=== PATIENT | male | born 1955 | race Caucasian/White ===

== ENCOUNTER 2019-09-23 11:17 | Emergency (ER) | payer MEDICARE ==
--- NOTE | 2019-09-23 12:43 | EDM.PDOC ---
ED HPI GENERAL MEDICAL PROBLEM - General Chief Complaint: General Stated Complaint: MED REFILL Time Seen by Provider: 09/23/19 11:30 Source of Information: Reports: Patient History Limitations: Reports: No Limitations - History of Present Illness INITIAL COMMENTS - FREE TEXT/NARRATIVE: 64-year-old male presents for mycotic medication refill. He recently moved here from [place] on July 01. He has had chronic low back pain for years and was prescribed OxyContin 40 mg twice daily, [place] 10/325 4 times a day, he ran out 4 days ago. He has an appointment to see pain management at [facility] on 09/29. He denies fever, chills, chest pain, abdominal pain, changes to his back pain, fecal or urinary incontinence, lower extremity weakness or numbness. He claims the clinic sent him here for medication refill. ROS: A 10-point review of systems, other than pertinent positives and negatives as stated per HPI, is otherwise negative Past medical history: No additional pertinent history Past Surgical history: No additional pertinent history Social history: No additional pertinent history Family history: No additional pertinent history PHYSICAL EXAM General: AOx4, GCS = 15, No distress HEENT: dry mucous membrane Neck: supple, no meningismus, no Kernig or Brudzinski Cardiac: S1S2 RRR Respiratory: CTAB, no crackles or rales, no wheezing Abdomen: Soft, nontender, no rebound or guarding, nondistended, no pulsatile mass. Back: nontender Musculoskeletal: NVI distally, no deformity Neuro: No focal deficits, CN 2 - 12 WNL. lower back Pain Score (Numeric/FACES): 9 - Related Data Allergies Allergy/AdvReac Type Severity Reaction Status Date / Time No Known Allergies Allergy Verified 09/23/19 11:28 Home Meds: Home Meds Hydrocodone/Acetaminophen [Hydrocodone-Acetamin 10-325 mg] 1 tab PO QID 09/23/19 [History] oxyCODONE ER [OxyCONTIN] 40 mg PO BID 09/23/19 [History] Past Medical History - Past Health History Medical/Surgical History: Denies Medical/Surgical History Musculoskeletal History: Reports: Back Pain, Chronic Social & Family History - Family History Family Medical History: Noncontributory - Tobacco Use Smoking Status *Q: Never Smoker - Caffeine Use Caffeine Use: Reports: Tea - Recreational Drug Use Recreational Drug Use: No ED ROS GENERAL - Review of Systems Review Of Systems: Comprehensive ROS is negative, except as noted in HPI. ED EXAM, GENERAL - Physical Exam Exam: See Below Course - Vital Signs Last Recorded V/S: Last Vital Signs Temp 98.2 F 09/23/19 11:25 Pulse 86 09/23/19 11:25 Resp 16 09/23/19 11:25 BP 174/87 H 09/23/19 11:25 Pulse Ox 95 09/23/19 11:25 - Orders/Labs/Meds Orders: Active Orders 24 hr Category Date Time Status Ketorolac [Toradol] Med 09/23/19 13:02 Once 30 mg IM ONETIME ONE Medication Orders Ketorolac Tromethamine (Toradol) 30 mg IM ONETIME ONE Stop: 09/23/19 13:03 Meds: Medications Generic Name Dose Route Start Last Admin Trade Name Freq PRN Reason Stop Dose Admin Ketorolac Tromethamine 30 mg 09/23/19 13:02 Toradol IM 09/23/19 13:03 ONETIME ONE - Re-Assessments/Exams Free Text/Narrative Re-Assessment/Exam: 09/23/19 13:04 After IM toradol. he is stable for discharge. I performed a repeat examination and the patient has not demonstrated any new abnormal findings. Patient exhibits normal vital signs and has exhibited a normal gait. I advised the patient to return to the ER for reevaluation if symptoms worsened, and to follow up with their pain management doctor for medication refill. MEDICAL DECISION MAKING: I reviewed the patients past medical records, lab and radiographic findings. I discussed the case with the patient. My differential diagnosis included: Medication refill, opiate dependence, drug-seeking behavior. Patient's back pain is suggestive of musculoskeletal strain. There are no complaints of urinary or fecal incontinence, focal numbness or weakness. The patient has a normal gait in the ER. There is no evidence of fever, IV drug use, recent back surgery, or immunocompromised state. I do not suspect caude equine syndrome or cord compression which would warrant further imaging. I instructed him to follow-up with his pain management doctor for narcotic refills. Instructed him that the emergency department is not the appropriate setting for refills of narcotic medication. I elected to give him an IM injection for his acute pain, and have him follow-up with pain management for narcotic refills. Departure - Departure Time of Disposition: 13:10 Disposition: Home, Self-Care 01 Condition: Good Clinical Impression: Back pain - Discharge Information *PRESCRIPTION DRUG MONITORING PROGRAM REVIEWED*: Not Applicable *COPY OF PRESCRIPTION DRUG MONITORING REPORT IN PATIENT JAN: Not Applicable Instructions: What You Need to Know About Chronic Back Pain, Back Injury Prevention Referrals: PCP,Not In Area [Primary Care Provider] - Forms: ED Department Discharge Additional Instructions: The following information is given to patients seen in the emergency department who are being discharged to home. This information is to outline your options for follow-up care. We provide all patients seen in our emergency department with a follow-up referral. The need for follow-up, as well as the timing and circumstances, are variable depending upon the specifics of your emergency department visit. If you don't have a primary care physician on staff, we will provide you with a referral. We always advise you to contact your personal physician following an emergency department visit to inform them of the circumstance of the visit and for follow-up with them and/or the need for any referrals to a consulting specialist. The emergency department will also refer you to a specialist when appropriate. This referral assures that you have the opportunity for follow-up care with a specialist. All of these measure are taken in an effort to provide you with optimal care, which includes your follow-up. Under all circumstances we always encourage you to contact your private physician who remains a resource for coordinating your care. When calling for follow-up care, please make the office aware that this follow-up is from your recent emergency room visit. If for any reason you are refused follow-up, please contact the [facility] Emergency Department at and asked to speak to the emergency department charge nurse. If you do not have a primary care doctor, please follow up with the clinics below within 3-5 days. [facility] - Primary Care [address] [place] [id number] [facility] [address] [place] [id number] Sepsis Event Note (ED) - Evaluation Sepsis Screening Result: No Definite Risk - Focused Exam Vital Signs: Vital Signs Temp Pulse Resp BP Pulse Ox 09/23/19 11:25 98.2 F 86 16 174/87 H 95 - My Orders Last 24 Hours: My Active Orders 09/23/19 13:02 Ketorolac [Toradol] 30 mg IM ONETIME ONE - Assessment/Plan Last 24 Hours: My Active Orders 09/23/19 13:02 Ketorolac [Toradol] 30 mg IM ONETIME ONE
[2019-09-23] MEDS ORDERED: Ketorolac 30 MG/ML SDV IM ONE (13:02)
== END 2019-09-23 13:24 | disposition home or self-care (01) ==
LOC: MW.ED 11:17
DX: M54.5 Low back pain (principal); G89.29 Other chronic pain; Z76.0 Encounter for issue of repeat prescription; Z79.899 Other long term (current) drug therapy
CPT/HCPCS: 96372; 99281; J1885

== ENCOUNTER 2020-11-24 22:27 | Inpatient (IN) | payer MEDICARE ==
[2020-11-24] MEDS ORDERED: methylPREDNISolone Sodium Succinate 125 MG/2 ML SDV IVPUSH ONE (22:42)
[2020-11-24] MEDS ORDERED: Albuterol/Ipratropium 3.0-0.5 MG/3 ML Neb Soln NEB ONE (22:43)
--- NOTE | 2020-11-24 22:46 | EDM.PDOC ---
ED HPI GENERAL MEDICAL PROBLEM - General Chief Complaint: Respiratory Problem Stated Complaint: SOB Time Seen by Provider: 11/24/20 22:28 Source of Information: Reports: Patient History Limitations: Reports: No Limitations - History of Present Illness INITIAL COMMENTS - FREE TEXT/NARRATIVE: Patient is a 65-year-old male with no past medical history for patient but does vape presents today for not feeling well. When asked patient said he does not feel himself he feels down and not energized. He has vomited the bedside states been coughing as well with a yellow production. States he felt warm and not had any documented temperatures. Denies any abdominal pain any nausea vomiting but days he has decreased p.o. intake as he has no appetite. Denies any urinary symptoms. Patient denies any other complaints. head Pain Score (Numeric/FACES): 8 - Related Data Allergies Allergy/AdvReac Type Severity Reaction Status Date / Time No Known Allergies Allergy Verified 11/24/20 22:42 Home Meds: Home Meds Hydrocodone/Acetaminophen [Hydrocodone-Acetamin 10-325 mg] 1 tab PO QID 09/23/19 [History] oxyCODONE ER [OxyCONTIN] 40 mg PO BID 09/23/19 [History] Past Medical History - Past Health History Medical/Surgical History: Denies Medical/Surgical History Musculoskeletal History: Reports: Back Pain, Chronic Social & Family History - Family History Family Medical History: No Pertinent Family History - Tobacco Use Tobacco Use Status *Q: Current Some Day Tobacco User Years of Tobacco use: 20 Packs/Tins Daily: 1 - Caffeine Use Caffeine Use: Reports: Tea - Recreational Drug Use Recreational Drug Use: No ED ROS GENERAL - Review of Systems Review Of Systems: See Below Constitutional: Reports: Malaise HEENT: Reports: No Symptoms Respiratory: Reports: Shortness of Breath Cardiovascular: Reports: No Symptoms Endocrine: Reports: No Symptoms GI/Abdominal: Reports: No Symptoms : Reports: No Symptoms Musculoskeletal: Reports: No Symptoms Skin: Reports: No Symptoms Neurological: Reports: No Symptoms Psychiatric: Reports: No Symptoms Hematologic/Lymphatic: Reports: No Symptoms Immunologic: Reports: No Symptoms ED EXAM, GENERAL - Physical Exam Exam: See Below Exam Limited By: No Limitations General Appearance: Alert, WD/WN, No Apparent Distress Head: Atraumatic, Normocephalic Neck: Normal Inspection Respiratory/Chest: No Respiratory Distress, Rhonchi, Wheezing Cardiovascular: Normal Peripheral Pulses, Regular Rate, Rhythm, No Edema GI/Abdominal: Normal Bowel Sounds, Soft, Non-Tender Back Exam: Normal Inspection Extremities: Normal Inspection, Normal Range of Motion, Non-Tender Neurological: Alert, Oriented, CN II-XII Intact, Normal Cognition, Normal Gait Course - Vital Signs Last Recorded V/S: Last Vital Signs Temp 97.1 F 11/24/20 22:40 Pulse 86 11/24/20 23:17 Resp 18 11/24/20 23:17 BP 113/73 11/24/20 23:17 Pulse Ox 93 L 11/24/20 23:17 - Orders/Labs/Meds Orders: Active Orders 24 hr Category Date Time Status Patient Status [ADT] Routine ADT 11/24/20 23:48 Ordered EKG Documentation Completion [RC] STAT Care 11/24/20 22:42 Active RT Aerosol Therapy [RC] ASDIRECTED Care 11/24/20 22:43 Active BILIRUBIN DIRECT [CHEM] DAILY Lab 11/24/20 23:48 Ordered BILIRUBIN DIRECT [CHEM] DAILY Lab 11/25/20 23:48 Ordered BILIRUBIN DIRECT [CHEM] DAILY Lab 11/26/20 23:48 Ordered BILIRUBIN DIRECT [CHEM] DAILY Lab 11/27/20 23:48 Ordered BILIRUBIN DIRECT [CHEM] DAILY Lab 11/28/20 23:48 Ordered BILIRUBIN DIRECT [CHEM] DAILY Lab 11/29/20 23:48 Ordered BILIRUBIN DIRECT [CHEM] Stat Lab 11/24/20 23:48 Ordered COMPREHENSIVE METABOLIC PN,CMP [CHEM] DAILY Lab 11/24/20 23:48 Ordered COMPREHENSIVE METABOLIC PN,CMP [CHEM] DAILY Lab 11/25/20 23:48 Ordered COMPREHENSIVE METABOLIC PN,CMP [CHEM] DAILY Lab 11/26/20 23:48 Ordered COMPREHENSIVE METABOLIC PN,CMP [CHEM] DAILY Lab 11/27/20 23:48 Ordered COMPREHENSIVE METABOLIC PN,CMP [CHEM] DAILY Lab 11/28/20 23:48 Ordered COMPREHENSIVE METABOLIC PN,CMP [CHEM] DAILY Lab 11/29/20 23:48 Ordered COMPREHENSIVE METABOLIC PN,CMP [CHEM] Stat Lab 11/24/20 23:48 Ordered Azithromycin [Zithromax] 500 mg Med 11/24/20 23:45 Active Sodium Chloride 0.9% [Normal Saline (AdvBag)] 250 ml IV ONETIME Medication Orders Azithromycin 500 mg/ Sodium (Chloride) 250 mls @ 250 mls/hr IV ONETIME [facility] Labs: Laboratory Tests 11/24/20 11/24/20 11/24/20 Range/Units 22:40 22:46 22:46 WBC 7.74 (4.0-11.0) K/uL RBC 4.67 (4.50-5.90) M/uL Hgb 13.9 (13.0-17.0) g/dL Hct 40.9 (38.0-50.0) % MCV 87.6 (80.0-98.0) fL MCH 29.8 (27.0-32.0) pg MCHC 34.0 (31.0-37.0) g/dL RDW Std Deviation 45.2 (28.0-62.0) fl RDW Coeff of Diogo 14 (11.0-15.0) % Plt Count 159 (150-400) K/uL MPV 10.40 (7.40-12.00) fL Neut % (Auto) 75.3 (48.0-80.0) % Lymph % (Auto) 14.2 L (16.0-40.0) % Sharp % (Auto) 10.3 (0.0-15.0) % Eos % (Auto) 0.1 (0.0-7.0) % Baso % (Auto) 0.1 (0.0-1.5) % Neut # (Auto) 5.8 H (1.4-5.7) K/uL Lymph # (Auto) 1.1 (0.6-2.4) K/uL Sharp # (Auto) 0.8 (0.0-0.8) K/uL Eos # (Auto) 0.0 (0.0-0.7) K/uL Baso # (Auto) 0.0 (0.0-0.1) K/uL Nucleated RBC % 0.0 /100WBC Nucleated RBCs # 0 K/uL Sodium 135 L (136-148) mmol/L Potassium 3.8 (3.5-5.1) mmol/L Chloride 99 (98-107) mmol/L Carbon Dioxide 26.1 (21.0-32.0) mmol/L BUN 14 (7.0-18.0) mg/dL Creatinine 1.0 (0.8-1.3) mg/dL Est Cr Clr Drug Dosing 90.37 mL/min Estimated GFR (MDRD) > 60.0 ml/min Glucose 131 H (74-106) mg/dL Calcium 8.5 (8.5-10.1) mg/dL Magnesium 1.8 (1.8-2.4) mg/dL Total Bilirubin 1.0 (0.2-1.0) mg/dL AST 55 H (15-37) IU/L ALT 54 (14-63) IU/L Alkaline Phosphatase 26 L (46-116) U/L Creatine Kinase 169 (26-308) U/L Troponin I < 0.050 (0.000-0.056) ng/mL Total Protein 7.9 (6.4-8.2) g/dL Albumin 3.0 L (3.4-5.0) g/dL Globulin 4.9 H (2.6-4.0) g/dL Albumin/Globulin Ratio 0.6 L (0.9-1.6) Lipase 57 L (73-393) U/L SARS-CoV-2 RNA (BETH) POSITIVE H (NEGATIVE) Meds: Medications Generic Name Dose Route Start Last Admin Trade Name Freq PRN Reason Stop Dose Admin Azithromycin 500 mg/ Sodium 250 mls @ 250 mls/hr 11/24/20 23:45 Chloride IV ONETIME LAURA Discontinued Medications Generic Name Dose Route Start Last Admin Trade Name Freq PRN Reason Stop Dose Admin Albuterol/Ipratropium 3 ml 11/24/20 22:43 11/24/20 22:54 Albuterol/Ipratropium 3.0-0.5 Mg/3 Ml Neb Soln NEB 11/24/20 22:44 3 ml ONETIME ONE Administration Ceftriaxone Sodium 1 gm 11/24/20 23:44 Ceftriaxone 1 Gm Vial IVPUSH 11/24/20 23:45 ONETIME ONE Remdesivir 200 mg/ Sodium 250 mls @ 250 mls/hr 11/24/20 23:48 Chloride IV 11/24/20 23:49 ONETIME ONE Methylprednisolone Sodium Succinate 125 mg 11/24/20 22:42 11/24/20 22:51 Methylprednisolone Sodium Succinate 125 Mg/2 Ml Sdv IVPUSH 11/24/20 22:43 125 mg ONETIME ONE Administration - Re-Assessments/Exams Free Text/Narrative Re-Assessment/Exam: 11/24/20 23:50 Shocks improved with 3 L up to 93%. Patient x-ray showed possible pneumonia but he is also Covid positive. We will start patient on ceftriaxone azithromycin give steroids and remdesivir and admit to hospital Departure - Departure Time of Disposition: 23:49 Disposition: Admitted As Inpatient 68 Condition: Good Clinical Impression: Pneumonia, Hypoxia - Discharge Information Referrals: Cayden Lr MD [Primary Care Provider] - Forms: ED Department Discharge Critical Care Note - Critical Care Note Total Time (mins): 45 Comments: Critical Care Procedure Note Authorized and Performed by: Dr. Romo Total critical care time: Approximately Due to a high probability of clinically significant, life threatening deterioration, the patient required my highest level of preparedness to intervene emergently and I personally spent this critical care time directly and personally managing the patient. This critical care time included obtaining a history; examining the patient; pulse oximetry; ordering and review of studies; arranging urgent treatment with development of a management plan; evaluation of patient's response to treatment; frequent reassessment; and, discussions with other providers. This critical care time was performed to assess and manage the high probability of imminent, life-threatening deterioration that could result in multi-organ failure. It was exclusive of separately billable procedures and treating other patients and teaching time. Sepsis Event Note (ED) - Evaluation Sepsis Screening Result: No Definite Risk - Focused Exam Vital Signs: Vital Signs Temp Pulse Resp BP Pulse Ox 11/24/20 23:17 86 18 113/73 93 L 11/24/20 22:40 97.1 F 97 20 152/76 H 89 L - My Orders Last 24 Hours: My Active Orders 11/24/20 22:42 EKG Documentation Completion [RC] STAT 11/24/20 22:43 RT Aerosol Therapy [RC] ASDIRECTED 11/24/20 23:45 Azithromycin [Zithromax] 500 mg Sodium Chloride 0.9% [Normal Saline (AdvBag)] 250 ml IV ONETIME 11/24/20 23:48 Patient Status [ADT] Routine BILIRUBIN DIRECT [CHEM] DAILY BILIRUBIN DIRECT [CHEM] Stat COMPREHENSIVE METABOLIC PN,CMP [CHEM] DAILY COMPREHENSIVE METABOLIC PN,CMP [CHEM] Stat 11/25/20 23:48 BILIRUBIN DIRECT [CHEM] DAILY COMPREHENSIVE METABOLIC PN,CMP [CHEM] DAILY 11/26/20 23:48 BILIRUBIN DIRECT [CHEM] DAILY COMPREHENSIVE METABOLIC PN,CMP [CHEM] DAILY 11/27/20 23:48 BILIRUBIN DIRECT [CHEM] DAILY COMPREHENSIVE METABOLIC PN,CMP [CHEM] DAILY 11/28/20 23:48 BILIRUBIN DIRECT [CHEM] DAILY COMPREHENSIVE METABOLIC PN,CMP [CHEM] DAILY 11/29/20 23:48 BILIRUBIN DIRECT [CHEM] DAILY COMPREHENSIVE METABOLIC PN,CMP [CHEM] DAILY - Assessment/Plan Last 24 Hours: My Active Orders 11/24/20 22:42 EKG Documentation Completion [RC] STAT 11/24/20 22:43 RT Aerosol Therapy [RC] ASDIRECTED 11/24/20 23:45 Azithromycin [Zithromax] 500 mg Sodium Chloride 0.9% [Normal Saline (AdvBag)] 250 ml IV ONETIME 11/24/20 23:48 Patient Status [ADT] Routine BILIRUBIN DIRECT [CHEM] DAILY BILIRUBIN DIRECT [CHEM] Stat COMPREHENSIVE METABOLIC PN,CMP [CHEM] DAILY COMPREHENSIVE METABOLIC PN,CMP [CHEM] Stat 11/25/20 23:48 BILIRUBIN DIRECT [CHEM] DAILY COMPREHENSIVE METABOLIC PN,CMP [CHEM] DAILY 11/26/20 23:48 BILIRUBIN DIRECT [CHEM] DAILY COMPREHENSIVE METABOLIC PN,CMP [CHEM] DAILY 11/27/20 23:48 BILIRUBIN DIRECT [CHEM] DAILY COMPREHENSIVE METABOLIC PN,CMP [CHEM] DAILY 11/28/20 23:48 BILIRUBIN DIRECT [CHEM] DAILY COMPREHENSIVE METABOLIC PN,CMP [CHEM] DAILY 11/29/20 23:48 BILIRUBIN DIRECT [CHEM] DAILY COMPREHENSIVE METABOLIC PN,CMP [CHEM] DAILY Plan: Patient six 5-year-old male presents today for malaise. Patient states he does not feel well not himself. Reports coughing. He is satting 88% on room air. Patient placed on nasal cannula begin steroids albuterol labs x-ray and reassess.
[2020-11-24 23:17] LABS: BLOOD UREA NITROGEN,BUN 14 mg/dL (7.0-18.0); CARBON DIOXIDE,CO2 26.1 mmol/L (21.0-32.0); CHLORIDE,CL 99 mmol/L (98-107); GLUCOSE RANDOM 131 mg/dL (74-106); LIPASE 57 U/L (73-393); POTASSIUM,K 3.8 mmol/L (3.5-5.1); SODIUM,NA 135 mmol/L (136-148)
--- NOTE | 2020-11-24 23:29 | CR ---
INDICATION: Cough and hypoxia TECHNIQUE: Chest radiograph 1 view COMPARISON: None FINDINGS: The sensitivity and specificity of the exam are severely limited by the patient`s body habitus. Mediastinum: The mediastinum is normal in appearance. The heart silhouette is normal in size and morphology. Lung: Ground-glass and fine nodular infiltrates are present in the right midlung zone, likely due to pneumonia or aspiration. No sign of pleural effusion seen. No pneumothorax is identified. Bone and Soft tissue: Unremarkable for age. IMPRESSION: 1. Ground-glass and fine nodular infiltrates are present in the right midlung zone, likely due to pneumonia or aspiration. Dictated by Jian Jose MD @ 11/24/2020 11:28:36 PM Dictated by: Jian Jose MD @ 11/24/2020 23:28:39 (Electronically Signed)
[2020-11-24] MEDS ORDERED: cefTRIAXone 1 GM Vial IVPUSH ONE (23:44)
[2020-11-24] MEDS ORDERED: Azithromycin 500 MG in Sodium Chloride 0.9% 250 ML IV SCH ×4 (23:45)
[2020-11-24] MEDS ORDERED: REMDESIVIR 200 MG in Sodium Chloride 0.9% 250 ML IV ONE (23:48)
[2020-11-24] MEDS ORDERED: Water For Injection, Sterile 20 ML SDV INJECT STA (23:56)
[2020-11-24] MEDS ORDERED: Azithromycin 500 MG in Sodium Chloride 0.9% 250 ML IV STA (23:57)
[2020-11-25] MEDS ORDERED: Ondansetron 4 MG/2 ML SDV IVPUSH PRN (02:21)
[2020-11-25] MEDS ORDERED: Albuterol/Ipratropium 4 GM Inhalation Spray INH PRN (02:22)
[2020-11-25] MEDS: Acetaminophen/HYDROcodone 325-10 MG Tab PO SCH ×2 (05:04→11:51)
--- NOTE | 2020-11-25 07:40 | PCM.HP.2 ---
H&P History of Present Illness - General Date of Service: 11/25/20 Admit Problem/Dx: Admission Diagnosis/Problem Admission Diagnosis/Problem Hypoxia - History of Present Illness Initial Comments - Free Text/Narative: 65-year-old male with no stated past medical history except chronic back pain treated with OxyContin and hydrocodone PRN presented to the emergency department with a roughly 1 week history of fatigue, cough with sputum production. At admission patient denied fever, chills, nausea, vomiting, abdominal pain, diarrhea. Patient states decreased appetite due to feeling ill. Patient has a history of vaping. Patient admitted for COVID-19 pneumonia. ER coursepatient started on ceftriaxone 1 g, azithromycin 5 mg, methylprednisolone 125 mg IV. Laboratory White blood cell count 7.74, hemoglobin 13.9, platelet 159, sodium 135, potassium 3.8, BUN 14, creatinine 1.0, magnesium 1.8, AST 55, ALT 54. Chest x-ray impression groundglass and fine nodular infiltrates present in the right midlung zone, pneumonia or aspiration. Admit to [facility] for COVID-19 pneumonia head Pain Score (Numeric/FACES): 2 Lower Back Pain Score (Numeric/FACES): 7 - Related Data Allergies/Adverse Reactions: Allergies Allergy/AdvReac Type Severity Reaction Status Date / Time No Known Allergies Allergy Verified 11/25/20 02:16 Home Medications: Home Meds Hydrocodone/Acetaminophen [Hydrocodone-Acetamin 10-325 mg] 1 tab PO QID 09/23/19 [History] oxyCODONE ER [OxyCONTIN] 40 mg PO BID 09/23/19 [History] Past Medical History - Past Health History Medical/Surgical History: Denies Medical/Surgical History Musculoskeletal History: Reports: Back Pain, Chronic - Past Surgical History Other Musculoskeletal Surgeries/Procedures:: back surgery Social & Family History - Family History Family Medical History: No Pertinent Family History - Tobacco Use Tobacco Use Status *Q: Former Tobacco User Years of Tobacco use: 20 Packs/Tins Daily: 1 Used Tobacco, but Quit: Yes Month/Year Tobacco Last Used: 2017 - Caffeine Use Caffeine Use: Reports: Soda, Tea - Recreational Drug Use Recreational Drug Use: No H&P Review of Systems - Review of Systems: Review Of Systems: See Below General: Denies: Fever, Chills, Fatigue Pulmonary: Reports: Cough. Denies: Shortness of Breath, Wheezing Cardiovascular: Denies: Chest Pain, Palpitations, Orthopnea, Edema Gastrointestinal: Denies: Abdominal Pain, Diarrhea, Decreased Appetite, Nausea Musculoskeletal: Reports: Back Pain Psychiatric: Denies: Confusion Neurological: Denies: Confusion, Dizziness, Headache Exam - Exam Exam: See Below - Vital Signs Vital Signs: Last Vital Signs Temp 97.7 F 11/25/20 04:00 Pulse 70 11/25/20 04:00 Resp 16 11/25/20 04:00 BP 132/72 11/25/20 04:00 Pulse Ox 90 L 11/25/20 04:00 Weight: 225 lb - Exam Quality Assessment: Supplemental Oxygen General: Alert, Oriented Lungs: Clear to Auscultation, Normal Respiratory Effort Cardiovascular: Regular Rate, Regular Rhythm GI/Abdominal Exam: Normal Bowel Sounds, Soft, Non-Tender Extremities: No Pedal Edema Neuro Extensive - Mental Status: Alert, Oriented x3 Psychiatric: Alert - Patient Data Lab Results Last 24 hrs: Laboratory Results - last 24 hr 11/24/20 11/24/20 11/24/20 Range/Units 22:40 22:46 22:46 WBC 7.74 (4.0-11.0) K/uL RBC 4.67 (4.50-5.90) M/uL Hgb 13.9 (13.0-17.0) g/dL Hct 40.9 (38.0-50.0) % MCV 87.6 (80.0-98.0) fL MCH 29.8 (27.0-32.0) pg MCHC 34.0 (31.0-37.0) g/dL RDW Std Deviation 45.2 (28.0-62.0) fl RDW Coeff of Diogo 14 (11.0-15.0) % Plt Count 159 (150-400) K/uL MPV 10.40 (7.40-12.00) fL Neut % (Auto) 75.3 (48.0-80.0) % Lymph % (Auto) 14.2 L (16.0-40.0) % [place] % (Auto) 10.3 (0.0-15.0) % Eos % (Auto) 0.1 (0.0-7.0) % Baso % (Auto) 0.1 (0.0-1.5) % Neut # (Auto) 5.8 H (1.4-5.7) K/uL Lymph # (Auto) 1.1 (0.6-2.4) K/uL [place] # (Auto) 0.8 (0.0-0.8) K/uL Eos # (Auto) 0.0 (0.0-0.7) K/uL Baso # (Auto) 0.0 (0.0-0.1) K/uL Nucleated RBC % 0.0 /100WBC Nucleated RBCs # 0 K/uL Sodium 135 L (136-148) mmol/L Potassium 3.8 (3.5-5.1) mmol/L Chloride 99 (98-107) mmol/L Carbon Dioxide 26.1 (21.0-32.0) mmol/L BUN 14 (7.0-18.0) mg/dL Creatinine 1.0 (0.8-1.3) mg/dL Est Cr Clr Drug Dosing 90.37 mL/min Estimated GFR (MDRD) > 60.0 ml/min Glucose 131 H (74-106) mg/dL Calcium 8.5 (8.5-10.1) mg/dL Magnesium 1.8 (1.8-2.4) mg/dL Total Bilirubin 1.0 (0.2-1.0) mg/dL AST 55 H (15-37) IU/L ALT 54 (14-63) IU/L Alkaline Phosphatase 26 L (46-116) U/L Creatine Kinase 169 (26-308) U/L Troponin I < 0.050 (0.000-0.056) ng/mL Total Protein 7.9 (6.4-8.2) g/dL Albumin 3.0 L (3.4-5.0) g/dL Globulin 4.9 H (2.6-4.0) g/dL Albumin/Globulin Ratio 0.6 L (0.9-1.6) Lipase 57 L (73-393) U/L SARS-CoV-2 RNA (BETH) POSITIVE H (NEGATIVE) Result Diagrams: 11/24/20 22:46 11/24/20 22:46 Sepsis Event Note - Evaluation Sepsis Screening Result: No Definite Risk - Focused Exam Vital Signs: Vital Signs Temp Pulse Resp BP Pulse Ox 11/25/20 04:00 97.7 F 70 16 132/72 90 L 11/25/20 01:10 75 19 122/71 95 11/25/20 00:11 96.2 F L 78 18 129/71 91 L 11/24/20 23:17 86 18 113/73 93 L 11/24/20 22:40 97.1 F 97 20 152/76 H 89 L - Problem List (1) COVID-19 SNOMED Code(s): 129368505 ICD Code: U07.1 - COVID-19 Status: Acute Current Visit: Yes (2) Hypoxia SNOMED Code(s): 284893929 ICD Code: R09.02 - HYPOXEMIA Status: Acute Current Visit: Yes (3) Pneumonia SNOMED Code(s): 134331769 ICD Code: J18.9 - PNEUMONIA, UNSPECIFIED ORGANISM Status: Acute Current Visit: Yes (4) Back pain SNOMED Code(s): 453315785 ICD Code: M54.9 - DORSALGIA, UNSPECIFIED Status: Acute Current Visit: No Problem List Initiated/Reviewed/Updated: Yes Orders Last 24hrs: Active Orders 24 hr Category Date Time Status Patient Status [ADT] Routine ADT 11/25/20 00:17 Active RT Post Treatment Assessment [RC] Click to Edit Care 11/25/20 02:24 Active RT Pre-Treatment Assessment [RC] Click to Edit Care 11/25/20 02:24 Active Regular Diet [DIET] Diet 11/25/20 Breakfast Active BILIRUBIN DIRECT [CHEM] DAILY Lab 11/25/20 23:48 Ordered BILIRUBIN DIRECT [CHEM] DAILY Lab 11/26/20 23:48 Ordered BILIRUBIN DIRECT [CHEM] DAILY Lab 11/27/20 23:48 Ordered BILIRUBIN DIRECT [CHEM] DAILY Lab 11/28/20 23:48 Ordered BILIRUBIN DIRECT [CHEM] DAILY Lab 11/29/20 23:48 Ordered COMPREHENSIVE METABOLIC PN,CMP [CHEM] DAILY Lab 11/25/20 23:48 Ordered COMPREHENSIVE METABOLIC PN,CMP [CHEM] DAILY Lab 11/26/20 23:48 Ordered COMPREHENSIVE METABOLIC PN,CMP [CHEM] DAILY Lab 11/27/20 23:48 Ordered COMPREHENSIVE METABOLIC PN,CMP [CHEM] DAILY Lab 11/28/20 23:48 Ordered COMPREHENSIVE METABOLIC PN,CMP [CHEM] DAILY Lab 11/29/20 23:48 Ordered Acetaminophen/HYDROcodone [[place]lessing 325-10 MG] Med 11/25/20 06:00 Active 1 tab PO QID Albuterol/Ipratropium [Combivent Respimat] Med 11/25/20 02:22 Active 0 gm INH Q6H PRN Ondansetron [Zofran] Med 11/25/20 02:21 Active 4 mg IVPUSH Q4H PRN Medication Orders Hydrocodone Bitart/Acetaminophen (Acetaminophen/Hydrocodone 325-10 Mg Tab) 1 tab PO QID LAURA Last Admin: 11/25/20 05:04 Dose: 1 tab Documented by: FAZAL Albuterol/Ipratropium (Albuterol/Ipratropium 4 Gm Inhalation [place]) 0 gm INH Q6H PRN PRN Reason: Dyspnea Ondansetron HCl (Ondansetron 4 Mg/2 Ml Sdv) 4 mg IVPUSH Q4H PRN PRN Reason: Nausea/Vomiting Assessment/Plan Comment:: COVID-19 pneumonia 100 mg every 24 hour X 4 days Dexamethasone 6 mg daily Combivent every 4 hours as needed, 40 mg Protonix every 24 hours, Lovenox 40mg SQ daily Chronic back painOxyContin 40 mg twice daily, hydrocodone as needed for breakthrough pain. Patient states he has been taking this regimen for a few years. Per [place] PDMP patient is currently being followed by Dr. Lr at [facility] and has received scheduled prescriptions of OxyContin ER 40 mg and [place]ing 10mg via [facility]. Prior to this patient was receiving morphine via morphine pump. Chest x-ray suspicious for pneumonia versus aspiration, will resume azithromycin 500 mg every 24, ceftriaxone 1 g every 24
[2020-11-25] MEDS: Pantoprazole 40 MG in Sodium Chloride 0.9% 10 ML IV SCH (09:03)
[2020-11-25] MEDS: Dexamethasone 4 MG Tab PO SCH (09:03)
[2020-11-25] MEDS ORDERED: Dexamethasone 4 MG Tab PO ONE (12:00)
[2020-11-25] MEDS ORDERED: Acetaminophen/HYDROcodone 325-10 MG Tab PO PRN (13:04)
[2020-11-25] MEDS: oxyCODONE ER 20 MG TAB.ER PO SCH ×2 (13:44→20:23)
[2020-11-25] MEDS: Enoxaparin 40 MG/0.4 ML Syringe SUBCUT SCH (13:45)
[2020-11-25] MEDS: cefTRIAXone 1 GM in Premix Bag 1 BAG IV SCH (20:22)
[2020-11-25] MEDS: Azithromycin 500 MG in Sodium Chloride 0.9% 250 ML IV SCH (21:26)
[2020-11-25] MEDS: REMDESIVIR 100 MG in Sodium Chloride 0.9% 100 ML IV SCH (21:45)
[2020-11-26 06:31] LABS: BLOOD UREA NITROGEN,BUN 21 mg/dL (7.0-18.0); CARBON DIOXIDE,CO2 27.7 mmol/L (21.0-32.0); CHLORIDE,CL 103 mmol/L (98-107); GLUCOSE RANDOM 171 mg/dL (74-106); POTASSIUM,K 4.6 mmol/L (3.5-5.1); SODIUM,NA 140 mmol/L (136-148)
[2020-11-26] MEDS: oxyCODONE ER 20 MG TAB.ER PO SCH ×2 (08:01→21:20)
[2020-11-26] MEDS: Dexamethasone 4 MG Tab PO SCH (08:01)
[2020-11-26] MEDS: Pantoprazole 40 MG in Sodium Chloride 0.9% 10 ML IV SCH (09:29)
[2020-11-26] MEDS: Enoxaparin 40 MG/0.4 ML Syringe SUBCUT SCH (12:07)
--- NOTE | 2020-11-26 14:30 | PCM.PN ---
- General Info Date of Service: 11/26/20 Subjective Update: The patient is a 65-year-old male on day 2 of service, who has a significant past medical history of chronic back pain and is on OxyContin 40 mg twice daily and hydrocodone 10 mg for breakthrough pain supplied to him by his family physician Dr. Lr. He was admitted due to COVID-19 pneumonia and is currently saturating 90% on 3 L of oxygen. His most recent chest x-ray showed pneumonia versus aspiration, and upon interview today he admits that he has a mild productive cough of white sputum, and shortness of breath upon exertion. He is eating, drinking, and has no issues with urination and/or defecation. He denies fever, chills, chest pain, palpitations, abdominal pain, nausea, vomiting, and headache. Upon discussion with the patient today with respect to remdesivir, he does not believe in its antiviral properties as he knows someone who used the medication and felt it was not effective. As a result, he was not given remdesivir today and will not moving forward. He has no other complaints at this time. - Review of Systems General: Denies: Fever, Fatigue, Chills HEENT: Denies: Headaches Pulmonary: Reports: Shortness of Breath, Cough. Denies: Pleuritic Chest Pain Cardiovascular: Reports: Dyspnea on Exertion. Denies: Chest Pain, Palpitations Gastrointestinal: Denies: Abdominal Pain, Constipation, Diarrhea Genitourinary: Denies: Dysuria Musculoskeletal: Reports: Back Pain - Patient Data Vitals - Most Recent: Last Vital Signs Temp 97.4 F 11/26/20 12:03 Pulse 63 11/26/20 12:03 Resp 18 11/26/20 12:03 BP 111/58 L 11/26/20 12:03 Pulse Ox 92 L 11/26/20 12:03 Weight - Most Recent: 225 lb I&O - Last 24 Hours: Intake & Output 11/25/20 11/26/20 11/26/20 22:59 06:59 14:59 Intake Total 400 890 Balance 400 890 Lab Results Last 24 Hours: Laboratory Results - last 24 hr 11/26/20 11/26/20 Range/Units 05:43 05:43 WBC 14.07 H (4.0-11.0) K/uL RBC 4.23 L (4.50-5.90) M/uL Hgb 12.6 L (13.0-17.0) g/dL Hct 37.2 L (38.0-50.0) % MCV 87.9 (80.0-98.0) fL MCH 29.8 (27.0-32.0) pg MCHC 33.9 (31.0-37.0) g/dL RDW Std Deviation 44.6 (28.0-62.0) fl RDW Coeff of Diogo 14 (11.0-15.0) % Plt Count 175 (150-400) K/uL MPV 10.70 (7.40-12.00) fL Neut % (Auto) 85.6 H (48.0-80.0) % Lymph % (Auto) 7.3 L (16.0-40.0) % [place] % (Auto) 7.0 (0.0-15.0) % Eos % (Auto) 0.0 (0.0-7.0) % Baso % (Auto) 0.1 (0.0-1.5) % Neut # (Auto) 12.1 H (1.4-5.7) K/uL Lymph # (Auto) 1.0 (0.6-2.4) K/uL [place] # (Auto) 1.0 H (0.0-0.8) K/uL Eos # (Auto) 0.0 (0.0-0.7) K/uL Baso # (Auto) 0.0 (0.0-0.1) K/uL Nucleated RBC % 0.0 /100WBC Nucleated RBCs # 0 K/uL Sodium 140 (136-148) mmol/L Potassium 4.6 (3.5-5.1) mmol/L Chloride 103 (98-107) mmol/L Carbon Dioxide 27.7 (21.0-32.0) mmol/L BUN 21 H (7.0-18.0) mg/dL Creatinine 0.9 (0.8-1.3) mg/dL Est Cr Clr Drug Dosing 100.41 mL/min Estimated GFR (MDRD) > 60.0 ml/min Glucose 171 H (74-106) mg/dL Calcium 9.2 (8.5-10.1) mg/dL Total Bilirubin 0.5 (0.2-1.0) mg/dL AST 35 (15-37) IU/L ALT 51 (14-63) IU/L Alkaline Phosphatase 25 L (46-116) U/L Total Protein 7.0 (6.4-8.2) g/dL Albumin 2.5 L (3.4-5.0) g/dL Globulin 4.5 H (2.6-4.0) g/dL Albumin/Globulin Ratio 0.6 L (0.9-1.6) Med Orders - Current: Current Medications Albuterol/Ipratropium (Albuterol/Ipratropium 4 Gm Inhalation [place]) 0 gm INH Q6H PRN PRN Reason: Dyspnea Dexamethasone (Dexamethasone 4 Mg Tab) 6 mg PO DAILY [facility] Last Admin: 11/26/20 08:01 Dose: 6 mg Documented by: Enoxaparin Sodium (Enoxaparin 40 Mg/0.4 Ml Syringe) 40 mg SUBCUT Q24H [facility] Last Admin: 11/26/20 12:07 Dose: 40 mg Documented by: Remdesivir 100 mg/ Sodium (Chloride) 100 mls @ 100 mls/hr IV Q24H [facility] Stop: 11/28/20 22:59 Last Admin: 11/25/20 21:45 Dose: Not Given Documented by: Pantoprazole Sodium 40 mg/ (Sodium Chloride) 10 mls @ 300 mls/hr IV Q24H [facility] Last Admin: 11/26/20 09:29 Dose: 300 mls/hr Documented by: Azithromycin 500 mg/ Sodium (Chloride) 250 mls @ 250 mls/hr IV Q24H [facility] Last Admin: 11/25/20 21:26 Dose: 250 mls/hr Documented by: Ceftriaxone Sodium/Dextrose 1 (gm/ Premix) 50 mls @ 100 mls/hr IV Q24H [facility] Last Admin: 11/25/20 20:22 Dose: 100 mls/hr Documented by: Ondansetron HCl (Ondansetron 4 Mg/2 Ml Sdv) 4 mg IVPUSH Q4H PRN PRN Reason: Nausea/Vomiting Oxycodone HCl (Oxycodone Er 20 Mg Tab.Er) 40 mg PO BID [facility] Last Admin: 11/26/20 08:01 Dose: 40 mg Documented by: Discontinued Medications Hydrocodone Bitart/Acetaminophen (Acetaminophen/Hydrocodone 325-10 Mg Tab) 1 tab PO QID LAURA Last Admin: 11/25/20 11:51 Dose: 1 tab Documented by: Hydrocodone Bitart/Acetaminophen (Acetaminophen/Hydrocodone 325-10 Mg Tab) 1 tab PO QID PRN PRN Reason: Pain Albuterol/Ipratropium (Albuterol/Ipratropium 3.0-0.5 Mg/3 Ml Neb Soln) 3 ml NEB ONETIME ONE Stop: 11/24/20 22:44 Last Admin: 11/24/20 22:54 Dose: 3 ml Documented by: Ceftriaxone Sodium (Ceftriaxone 1 Gm Vial) 1 gm IVPUSH ONETIME ONE Stop: 11/24/20 23:45 Last Admin: 11/25/20 00:08 Dose: 1 gm Documented by: Dexamethasone (Dexamethasone 4 Mg Tab) 6 mg PO ONETIME ONE Stop: 11/25/20 12:01 Azithromycin 500 mg/ Sodium (Chloride) 250 mls @ 250 mls/hr IV ONETIME LAURA Remdesivir 200 mg/ Sodium (Chloride) 250 mls @ 250 mls/hr IV ONETIME ONE Stop: 11/24/20 23:49 Last Admin: 11/25/20 00:23 Dose: 250 mls/hr Documented by: Azithromycin 500 mg/ Sodium (Chloride) 250 mls @ 250 mls/hr IV ONETIME LAURA Stop: 11/25/20 00:08 Azithromycin 500 mg/ Sodium (Chloride) 250 mls @ 250 mls/hr IV NOW STA Stop: 11/25/20 00:56 Last Admin: 11/25/20 00:09 Dose: 250 mls/hr Documented by: Methylprednisolone Sodium Succinate (Methylprednisolone Sodium Succinate 125 Mg/2 Ml Sdv) 125 mg IVPUSH ONETIME ONE Stop: 11/24/20 22:43 Last Admin: 11/24/20 22:51 Dose: 125 mg Documented by: Sterile Water (Water For Injection, Sterile 20 Ml Sdv) 10 ml INJECT NOW STA Stop: 11/24/20 23:57 Last Admin: 11/25/20 00:11 Dose: 10 ml Documented by: - Exam General: Alert, Oriented, Cooperative HEENT: Mucous Membr. Moist/[place] Neck: Other Lungs: Wheezing Cardiovascular: Regular Rate, Regular Rhythm, No Murmurs GI/Abdominal Exam: Normal Bowel Sounds, Soft, Non-Tender - Patient Data Lab Results Last 24 hrs: Laboratory Results - last 24 hr 11/26/20 11/26/20 Range/Units 05:43 05:43 WBC 14.07 H (4.0-11.0) K/uL RBC 4.23 L (4.50-5.90) M/uL Hgb 12.6 L (13.0-17.0) g/dL Hct 37.2 L (38.0-50.0) % MCV 87.9 (80.0-98.0) fL MCH 29.8 (27.0-32.0) pg MCHC 33.9 (31.0-37.0) g/dL RDW Std Deviation 44.6 (28.0-62.0) fl RDW Coeff of Diogo 14 (11.0-15.0) % Plt Count 175 (150-400) K/uL MPV 10.70 (7.40-12.00) fL Neut % (Auto) 85.6 H (48.0-80.0) % Lymph % (Auto) 7.3 L (16.0-40.0) % [place] % (Auto) 7.0 (0.0-15.0) % Eos % (Auto) 0.0 (0.0-7.0) % Baso % (Auto) 0.1 (0.0-1.5) % Neut # (Auto) 12.1 H (1.4-5.7) K/uL Lymph # (Auto) 1.0 (0.6-2.4) K/uL [place] # (Auto) 1.0 H (0.0-0.8) K/uL Eos # (Auto) 0.0 (0.0-0.7) K/uL Baso # (Auto) 0.0 (0.0-0.1) K/uL Nucleated RBC % 0.0 /100WBC Nucleated RBCs # 0 K/uL Sodium 140 (136-148) mmol/L Potassium 4.6 (3.5-5.1) mmol/L Chloride 103 (98-107) mmol/L Carbon Dioxide 27.7 (21.0-32.0) mmol/L BUN 21 H (7.0-18.0) mg/dL Creatinine 0.9 (0.8-1.3) mg/dL Est Cr Clr Drug Dosing 100.41 mL/min Estimated GFR (MDRD) > 60.0 ml/min Glucose 171 H (74-106) mg/dL Calcium 9.2 (8.5-10.1) mg/dL Total Bilirubin 0.5 (0.2-1.0) mg/dL AST 35 (15-37) IU/L ALT 51 (14-63) IU/L Alkaline Phosphatase 25 L (46-116) U/L Total Protein 7.0 (6.4-8.2) g/dL Albumin 2.5 L (3.4-5.0) g/dL Globulin 4.5 H (2.6-4.0) g/dL Albumin/Globulin Ratio 0.6 L (0.9-1.6) Result Diagrams: 11/26/20 05:43 11/26/20 05:43 Sepsis Event Note - Evaluation Sepsis Screening Result: No Definite Risk - Focused Exam Vital Signs: Vital Signs Temp Pulse Resp BP Pulse Ox 11/26/20 12:03 97.4 F 63 18 111/58 L 92 L 11/26/20 09:25 97.7 F 18 91 L 11/26/20 07:55 64 18 115/65 90 L 11/26/20 04:00 74 17 123/73 90 L - Problem List & Annotations (1) COVID-19 SNOMED Code(s): 947161135 Code(s): U07.1 - COVID-19 Status: Acute Current Visit: Yes (2) Hypoxia SNOMED Code(s): 517574147 Code(s): R09.02 - HYPOXEMIA Status: Acute Current Visit: Yes (3) Pneumonia SNOMED Code(s): 561381503 Code(s): J18.9 - PNEUMONIA, UNSPECIFIED ORGANISM Status: Acute Current Visit: Yes (4) Back pain SNOMED Code(s): 252628271 Code(s): M54.9 - DORSALGIA, UNSPECIFIED Status: Acute Current Visit: No - Problem List Review Problem List Initiated/Reviewed/Updated: Yes - Plan Plan:: 1. COVID-19 pneumonia -We will continue the patient on dexamethasone 6 mg per oral route once a day, patient is due for second dose -The patient has refused treatment with remdesivir IV treatments and thus the medication will not be given -For shortness of breath, the patient will be given Combivent every 6 hours as needed -Incentive spirometry in the prone position has been encouraged -We will continue to supply oxygen as needed 2. CXR-pneumonia versus aspiration -We will continue the patient on azithromycin 500 mg every 24 hours per IV, the last dosage was given on 11/25 -We will continue the patient on ceftriaxone 1 g every 24 hours per IV route, the last dosage was given on 11/25 -Daily CBCs will be acquired in order to monitor white blood cell status 3. Chronic back pain -The patient is on OxyContin 40 mg twice a day per oral route and we will continue to monitor his pain
[2020-11-26] MEDS: cefTRIAXone 1 GM in Premix Bag 1 BAG IV SCH (20:38)
[2020-11-26] MEDS: Azithromycin 500 MG in Sodium Chloride 0.9% 250 ML IV SCH (21:22)
[2020-11-26] MEDS: REMDESIVIR 100 MG in Sodium Chloride 0.9% 100 ML IV SCH (22:08)
[2020-11-27 06:34] LABS: BLOOD UREA NITROGEN,BUN 23 mg/dL (7.0-18.0); CARBON DIOXIDE,CO2 26.3 mmol/L (21.0-32.0); CHLORIDE,CL 107 mmol/L (98-107); GLUCOSE RANDOM 125 mg/dL (74-106); POTASSIUM,K 4.6 mmol/L (3.5-5.1); SODIUM,NA 143 mmol/L (136-148)
[2020-11-27] MEDS: oxyCODONE ER 20 MG TAB.ER PO SCH (09:07)
[2020-11-27] MEDS: Dexamethasone 4 MG Tab PO SCH (09:08)
[2020-11-27] MEDS: Pantoprazole 40 MG in Sodium Chloride 0.9% 10 ML IV SCH (09:08)
[2020-11-27] MEDS: Enoxaparin 40 MG/0.4 ML Syringe SUBCUT SCH ×2 (11:53→13:20)
--- NOTE | 2020-11-28 01:07 | PCM.DCSUM1 ---
Discharge Summary - Hospital Course Free Text/Narrative:: 65-year-old male with no stated past medical history except chronic back pain treated with OxyContin and hydrocodone PRN presented to the emergency department with a roughly 1 week history of fatigue, cough with sputum production. At admission patient denied fever, chills, nausea, vomiting, abdominal pain, diarrhea. Patient states decreased appetite due to feeling ill. Patient has a history of vaping. Patient admitted for COVID-19 pneumonia 11-25-20. ER coursepatient started on ceftriaxone 1 g, azithromycin 5 mg, methylprednisolone 125 mg IV. Laboratory White blood cell count 7.74, hemoglobin 13.9, platelet 159, sodium 135, potassium 3.8, BUN 14, creatinine 1.0, magnesium 1.8, AST 55, ALT 54. Chest x-ray impression groundglass and fine nodular infiltrates present in the right midlung zone, pneumonia or aspiration. During admission patient was treated with oxygen therapy, DuoNeb's, antibiotics, remdesivir, dexamethasone. Patient tolerated treatment well Patient discharged home on 11-27-20 with albuterol inhaler, azithromycin 500 mg X 1 tablet, cefdinir 300 mg p.o BID X 5 days, dexamethasone 6 mg daily X 7 days. Patient also discharged with prescription for home oxygen. - Discharge Data Discharge Date: 11/28/20 Discharge Disposition: Home, Self-Care 01 Condition: Stable - Referral to Home Health Primary Care Physician: Cayden Lr MD - Discharge Diagnosis/Problem(s) (1) COVID-19 SNOMED Code(s): 517549139 ICD Code: U07.1 - COVID-19 Status: Acute (2) Hypoxia SNOMED Code(s): 028394939 ICD Code: R09.02 - HYPOXEMIA Status: Acute (3) Pneumonia SNOMED Code(s): 095545333 ICD Code: J18.9 - PNEUMONIA, UNSPECIFIED ORGANISM Status: Acute (4) Back pain SNOMED Code(s): 854315807 ICD Code: M54.9 - DORSALGIA, UNSPECIFIED Status: Acute - Patient Instructions Diet: Usual Diet as Tolerated Activity: As Tolerated Showering/Bathing: May Shower Notify Provider of: Fever, Increased Pain, Swelling and Redness, Nausea and/or Vomiting Other/Special Instructions: Patient to visit emergency room if experiencing severe shortness of breath, chest pain. Patient reports symptoms of cough, mild shortness of breath, abdominal pain, fever, chills to primary care physician. - Discharge Plan Prescriptions/Med Rec: Albuterol Sulfate [Albuterol Sulfate HFA] 1 puff INH Q4H PRN #1 ea PRN Reason: Shortness Of Breath Azithromycin 500 mg PO DAILY 1 Days #1 tablet Cefdinir 300 mg PO BID 5 Days #10 capsule dexAMETHasone [Dexamethasone] 6 mg PO DAILY 7 Days #11 tablet Azithromycin [Zithromax] 500 mg PO Q24H 1 Days #1 vial Home Medications: Home Meds Hydrocodone/Acetaminophen [HYDROcodone-Acetaminophen 10-325 MG] 1 tab PO QID 09/23/19 [History] oxyCODONE ER [OxyCONTIN] 40 mg PO BID 09/23/19 [History] Albuterol Sulfate [Albuterol Sulfate HFA] 1 puff INH Q4H PRN #1 ea 11/27/20 [Rx] Azithromycin 500 mg PO DAILY 1 Days #1 tablet 11/27/20 [Rx] Azithromycin [Zithromax] 500 mg PO Q24H 1 Days #1 vial 11/27/20 [Rx] Cefdinir 300 mg PO BID 5 Days #10 capsule 11/27/20 [Rx] dexAMETHasone [Dexamethasone] 6 mg PO DAILY 7 Days #11 tablet 11/27/20 [Rx] Oxygen Therapy Mode: Nasal Cannula Oxygen Flow Rate (L/min): 3 Maintain SpO2% greater than: 92 Patient Handouts: COVID-19, Cefdinir Capsules, Albuterol inhalation aerosol, Azithromycin tablets, COVID-19: How to Protect Yourself and Others - [facility], Dexamethasone tablets Forms: ED Department Discharge Referrals: Cayden Lr MD [Primary Care Provider] - 12/08/20 10:00 am - Discharge Summary/Plan Comment DC Time >30 min.: Yes Total # of Minutes for Discharge Time: 35 - General Info Subjective Update: Patient states he feels fine this morning, denies fever, chills, nausea, vomiting, vomiting, chest pain, shortness of breath, diarrhea. Patient states that he would like to be discharged today as he has home obligations that require attention. - Review of Systems General: Denies: Fever, Chills Pulmonary: Denies: Shortness of Breath, Cough Cardiovascular: Denies: Chest Pain, Palpitations, Dyspnea on Exertion, Orthopnea, Edema Gastrointestinal: Denies: Abdominal Pain, Decreased Appetite, Diarrhea, Nausea, Vomiting Neurological: Denies: Confusion, Dizziness, Headache Psychiatric: Denies: Confusion - Patient Data Vitals - Most Recent: Last Vital Signs Temp 96.9 F 11/27/20 11:52 Pulse 62 11/27/20 11:52 Resp 20 11/27/20 11:52 BP 145/66 H 11/27/20 11:52 Pulse Ox 91 L 11/27/20 11:52 Weight - Most Recent: 225 lb I&O - Last 24 hours: Intake & Output 11/27/20 11/27/20 11/28/20 14:59 22:59 06:59 Intake Total 750 Balance 750 Lab Results - Last 24 hrs: Laboratory Results - last 24 hr 11/27/20 11/27/20 Range/Units 05:20 05:20 WBC 12.53 H (4.0-11.0) K/uL RBC 4.08 L (4.50-5.90) M/uL Hgb 12.2 L (13.0-17.0) g/dL Hct 35.8 L (38.0-50.0) % MCV 87.7 (80.0-98.0) fL MCH 29.9 (27.0-32.0) pg MCHC 34.1 (31.0-37.0) g/dL RDW Std Deviation 44.6 (28.0-62.0) fl RDW Coeff of Diogo 14 (11.0-15.0) % Plt Count 159 (150-400) K/uL MPV 11.20 (7.40-12.00) fL Neut % (Auto) 82.7 H (48.0-80.0) % Lymph % (Auto) 9.7 L (16.0-40.0) % [place] % (Auto) 7.5 (0.0-15.0) % Eos % (Auto) 0.0 (0.0-7.0) % Baso % (Auto) 0.1 (0.0-1.5) % Neut # (Auto) 10.4 H (1.4-5.7) K/uL Lymph # (Auto) 1.2 (0.6-2.4) K/uL [place] # (Auto) 0.9 H (0.0-0.8) K/uL Eos # (Auto) 0.0 (0.0-0.7) K/uL Baso # (Auto) 0.0 (0.0-0.1) K/uL Nucleated RBC % 0.0 /100WBC Nucleated RBCs # 0 K/uL Sodium 143 (136-148) mmol/L Potassium 4.6 (3.5-5.1) mmol/L Chloride 107 (98-107) mmol/L Carbon Dioxide 26.3 (21.0-32.0) mmol/L BUN 23 H (7.0-18.0) mg/dL Creatinine 0.8 (0.8-1.3) mg/dL Est Cr Clr Drug Dosing 112.96 mL/min Estimated GFR (MDRD) > 60.0 ml/min Glucose 125 H (74-106) mg/dL Calcium 8.2 L (8.5-10.1) mg/dL Total Bilirubin 0.5 (0.2-1.0) mg/dL AST 31 (15-37) IU/L ALT 51 (14-63) IU/L Alkaline Phosphatase 23 L (46-116) U/L Total Protein 6.4 (6.4-8.2) g/dL Albumin 2.4 L (3.4-5.0) g/dL Globulin 4.0 (2.6-4.0) g/dL Albumin/Globulin Ratio 0.6 L (0.9-1.6) Med Orders - Current: Current Medications Discontinued Medications Hydrocodone Bitart/Acetaminophen (Acetaminophen/Hydrocodone 325-10 Mg Tab) 1 tab PO QID LAURA Last Admin: 11/25/20 11:51 Dose: 1 tab Documented by: Hydrocodone Bitart/Acetaminophen (Acetaminophen/Hydrocodone 325-10 Mg Tab) 1 tab PO QID PRN PRN Reason: Pain Albuterol/Ipratropium (Albuterol/Ipratropium 3.0-0.5 Mg/3 Ml Neb Soln) 3 ml NEB ONETIME ONE Stop: 11/24/20 22:44 Last Admin: 11/24/20 22:54 Dose: 3 ml Documented by: Albuterol/Ipratropium (Albuterol/Ipratropium 4 Gm Inhalation Dexter) 0 gm INH Q6H PRN PRN Reason: Dyspnea Ceftriaxone Sodium (Ceftriaxone 1 Gm Vial) 1 gm IVPUSH ONETIME ONE Stop: 11/24/20 23:45 Last Admin: 11/25/20 00:08 Dose: 1 gm Documented by: Dexamethasone (Dexamethasone 4 Mg Tab) 6 mg PO ONETIME ONE Stop: 11/25/20 12:01 Dexamethasone (Dexamethasone 4 Mg Tab) 6 mg PO DAILY [facility] Last Admin: 11/27/20 09:08 Dose: 6 mg Documented by: Enoxaparin Sodium (Enoxaparin 40 Mg/0.4 Ml Syringe) 40 mg SUBCUT Q24H [facility] Last Admin: 11/27/20 13:20 Dose: Not Given Documented by: Azithromycin 500 mg/ Sodium (Chloride) 250 mls @ 250 mls/hr IV ONETIME LAURA Remdesivir 200 mg/ Sodium (Chloride) 250 mls @ 250 mls/hr IV ONETIME ONE Stop: 11/24/20 23:49 Last Admin: 11/25/20 00:23 Dose: 250 mls/hr Documented by: Azithromycin 500 mg/ Sodium (Chloride) 250 mls @ 250 mls/hr IV ONETIME LAURA Stop: 11/25/20 00:08 Azithromycin 500 mg/ Sodium (Chloride) 250 mls @ 250 mls/hr IV NOW STA Stop: 11/25/20 00:56 Last Admin: 11/25/20 00:09 Dose: 250 mls/hr Documented by: Remdesivir 100 mg/ Sodium (Chloride) 100 mls @ 100 mls/hr IV Q24H [facility]A Stop: 11/28/20 22:59 Last Admin: 11/26/20 22:08 Dose: Not Given Documented by: Pantoprazole Sodium 40 mg/ (Sodium Chloride) 10 mls @ 300 mls/hr IV Q24H [facility] Last Admin: 11/27/20 09:08 Dose: 300 mls/hr Documented by: Azithromycin 500 mg/ Sodium (Chloride) 250 mls @ 250 mls/hr IV Q24H [facility] Last Admin: 11/26/20 21:22 Dose: 250 mls/hr Documented by: Ceftriaxone Sodium/Dextrose 1 (gm/ Premix) 50 mls @ 100 mls/hr IV Q24H [facility] Last Admin: 11/26/20 20:38 Dose: 100 mls/hr Documented by: Methylprednisolone Sodium Succinate (Methylprednisolone Sodium Succinate 125 Mg/2 Ml Sdv) 125 mg IVPUSH ONETIME ONE Stop: 11/24/20 22:43 Last Admin: 11/24/20 22:51 Dose: 125 mg Documented by: Ondansetron HCl (Ondansetron 4 Mg/2 Ml Sdv) 4 mg IVPUSH Q4H PRN PRN Reason: Nausea/Vomiting Oxycodone HCl (Oxycodone Er 20 Mg Tab.Er) 40 mg PO BID [facility]URA Last Admin: 11/27/20 09:07 Dose: 40 mg Documented by: Sterile Water (Water For Injection, Sterile 20 Ml Sdv) 10 ml INJECT NOW STA Stop: 11/24/20 23:57 Last Admin: 11/25/20 00:11 Dose: 10 ml Documented by: - Exam General: Reports: Alert, Oriented Lungs: Reports: Clear to Auscultation, Normal Respiratory Effort Cardiovascular: Reports: Regular Rate, Regular Rhythm GI/Abdominal Exam: Soft, Non-Tender
--- NOTE | 2020-12-04 20:55 | PCM.EKG ---
#1 Interpretation EKG Date: 11/24/20 Time: 22:24 Rhythm: NSR Rate (Beats/Min): 82 ST-T: Normal
== END 2020-11-27 15:05 | disposition home or self-care (01) | DRG 177 ==
LOC: MW.ED 22:27 → MW.ICU 23:48 → MW.MS 11-25 00:17
PROVIDERS: ADMIT Internal Medicine; ATTEND Internal Medicine
PROC: 8E0ZXY6 Isolation (ICD-10-PCS; principal; 2020-11-24)
PROC: XW033E5 Introduction of Remdesivir Anti-infective into Peripheral Vein, Percutaneous Approach, New Technology Group 5 (ICD-10-PCS; 2020-11-24)
PROC: 3E0DX3Z Introduction of Anti-inflammatory into Mouth and Pharynx, External Approach (ICD-10-PCS; 2020-11-25)
DX: U07.1 COVID-19 (principal); J18.9 Pneumonia, unspecified organism; R09.02 Hypoxemia; F17.210 Nicotine dependence, cigarettes, uncomplicated; J12.82 Pneumonia due to coronavirus disease 2019; M54.9 Dorsalgia, unspecified; Z79.899 Other long term (current) drug therapy; G89.29 Other chronic pain; Z87.891 Personal history of nicotine dependence
CPT/HCPCS: 36415; 71045; 80053; 82550; 83690; 83735; 84484; 85025; 93005; J2930; U0002; 93010; 96374; 99284; 99285-25; A9270-GY; C9113; J0456; J0696; J1650; J7050; J7620-GY; J8540